=== PATIENT | female | born 1965 | race Caucasian/White ===

== ENCOUNTER 2020-05-22 07:45 | Emergency (ER) | payer OTHER ==
[~2020-05-22] VITALS: Ht 175.3 cm; Wt 90.7 kg
[~2020-05-22 07:45] MED LIST: CIPRO500 MG PO; ONDANSETRON HCL4 M2 PO; TORADOL 10 MG T10 MG PO
[2020-05-22 08:34] LABS: ABSOLUTE BASOPHILS 0.1 thou/uL (0.0-0.2); ABSOLUTE EOSINOPHILS 0.2 thou/uL (0.0-0.7); ABSOLUTE LYMPHOCYTES 2.4 thou/uL (0.8-5.3); ABSOLUTE MONOCYTES 2.1 thou/uL (0.0-1.2); ABSOLUTE NEUTROPHILS 12.1 thou/uL (1.6-8.1); BASOPHILS 0.4 %; HEMATOCRIT 41.2 % (37.0-47.0); HEMOGLOBIN 14.2 gm/dL (12.0-15.0); LYMPHOCYTES 14.5 %; MCH 28.4 pg (26.0-34.0); MCHC 34.4 g/dL (28.0-37.0); MCV 82.6 fL (80.0-100.0); MONOCYTES 12.4 %; MPV 9.6 fl. (7.2-11.1); NUCLEATED RBCS 0 /100WBC; PLATELET COUNT* 302 thou/uL (150-400); POLYS 71.7 %; RBC 4.99 mil/uL (4.20-5.00); RDW-CV 12.8 % (10.5-14.5); WBC 16.8 thou/uL (4.0-11.0)
[2020-05-22 08:42] LABS: CALCIUM 9.1 mg/dL (8.5-10.1); CREATININE 1.3 mg/dL (0.6-1.3); POTASSIUM 4.1 mmol/L (3.5-5.1)
[2020-05-22 08:47] LABS: TOTAL BILIRUBIN 0.5 mg/dL (<0.1-1.0); TOTAL PROTEIN 8.7 g/dL (6.4-8.2)
[2020-05-22 10:13] LABS: URINE BILIRUBIN NEGATIVE (Negative); URINE BLOOD 2+ (Negative); URINE CLARITY CLEAR; URINE COLOR YELLOW; URINE GLUCOSE-RANDOM NEGATIVE (Negative); URINE KETONES NEGATIVE (Negative); URINE LEUKOCYTES-REFLEX 2+ (Negative); URINE NITRITE-REFLEX NEGATIVE (Negative); URINE PROTEIN NEGATIVE (Negative); URINE SPECIFIC GRAVITY <= 1.005 (1.005-1.030); URINE UROBILINOGEN 0.2 E.U./dl (0.2-1.0)
[2020-05-22 10:20] LABS: SQUAMOUS >10 Many /LPF (0-3)
[2020-05-22 10:23] LABS: BACTERIA-REFLEX >30 Many /HPF (None Seen); CASTS None Seen /LPF (None Seen); CRYSTALS None Seen /LPF (None Seen); MUCUS 0-3 Light strn/LPF (None Seen); URINE RBC 3-10 Few /HPF (0-2)
[2020-05-22 11:45] VITALS: BP 119/38
== END 2020-05-22 11:45 | disposition designated cancer center or children's hospital (05) ==
LOC: M.ERS 07:45
PROVIDERS: Emergency Medicine Emergency Medical Services
DX: N20.0 Calculus of kidney (principal); N39.0 Urinary tract infection, site not specified; Z20.828 Contact with and (suspected) exposure to other viral communicable diseases; Z87.442 Personal history of urinary calculi; Z90.710 Acquired absence of both cervix and uterus; Z91.048 Other nonmedicinal substance allergy status; Z88.6 Allergy status to analgesic agent; Z88.8 Allergy status to other drugs, medicaments and biological substances

== ENCOUNTER 2020-10-22 22:02 | Emergency (ER) | payer OTHER ==
[~2020-10-22] VITALS: Ht 175.3 cm; Wt 95.3 kg
[2020-10-22] MEDS ORDERED: FLONASE 0.05%50 MCG NASAL (22:17)
[2020-10-22] MEDS ORDERED: ZYRTEC10 M5 PO (22:17)
[2020-10-22] MEDS ORDERED: SUPER THERAVIT1 EACH PO (22:17)
[2020-10-22 22:37] LABS: URINE BILIRUBIN NEGATIVE (Negative); URINE BLOOD 1+ (Negative); URINE CLARITY SL CLOUDY; URINE COLOR YELLOW; URINE GLUCOSE-RANDOM NEGATIVE (Negative); URINE KETONES NEGATIVE (Negative); URINE LEUKOCYTES-REFLEX 1+ (Negative); URINE NITRITE-REFLEX NEGATIVE (Negative); URINE PROTEIN 1+ (Negative); URINE SPECIFIC GRAVITY 1.025 (1.005-1.030); URINE UROBILINOGEN 0.2 E.U./dl (0.2-1.0)
[2020-10-22 22:46] LABS: MUCUS None Seen strn/LPF (None Seen); SQUAMOUS 0-3 Few /LPF (0-3); URINE WBC-REFLEX >25 Many /HPF (0-5)
[2020-10-22 22:47] LABS: BACTERIA-REFLEX >30 Many /HPF (None Seen)
[2020-10-22 22:48] LABS: WBC CLUMPS Few (None Seen)
[2020-10-22 22:49] LABS: CASTS None Seen /LPF (None Seen); CRYSTALS None Seen /LPF (None Seen); URINE RBC 0-2 Rare /HPF (0-2)
[2020-10-22 22:54] LABS: ABSOLUTE BASOPHILS 0.1 thou/uL (0.0-0.2); ABSOLUTE EOSINOPHILS 0.3 thou/uL (0.0-0.7); ABSOLUTE LYMPHOCYTES 3.6 thou/uL (0.8-5.3); ABSOLUTE NEUTROPHILS 11.6 thou/uL (1.6-8.1); BASOPHILS 0.4 %; EOSINOPHILS 1.6 %; WBC 16.9 thou/uL (4.0-11.0)
[2020-10-22 22:55] LABS: ABSOLUTE MONOCYTES 1.4 thou/uL (0.0-1.2); HEMATOCRIT 42.5 % (37.0-47.0); HEMOGLOBIN 14.2 gm/dL (12.0-15.0); LYMPHOCYTES 21.5 %; MCH 27.4 pg (26.0-34.0); MCHC 33.3 g/dL (28.0-37.0); MCV 82.3 fL (80.0-100.0); MONOCYTES 8.1 %; MPV 10.2 fl. (7.2-11.1); NUCLEATED RBCS 0 /100WBC; PLATELET COUNT* 245 thou/uL (150-400); POLYS 68.4 %; RBC 5.16 mil/uL (4.20-5.00); RDW-CV 12.9 % (10.5-14.5)
[2020-10-22 23:02] LABS: CALCIUM 9.7 mg/dL (8.5-10.1); POTASSIUM 3.8 mmol/L (3.5-5.1)
[2020-10-23] MEDS ORDERED: DOXYCYCLINE 10100 MG PO (00:48)
[2020-10-23] MEDS ORDERED: ZOFRAN ODT4 MG PO (00:49)
[2020-10-23] MEDS ORDERED: HYDROCODON-ACE1 EAC8 PO (00:49)
[2020-10-23 00:56] VITALS: BP 149/77
== END 2020-10-23 00:56 | disposition home or self-care (01) ==
LOC: M.ERS 22:02
PROVIDERS: Emergency Medicine
DX: N12 Tubulo-interstitial nephritis, not specified as acute or chronic (principal); Z87.442 Personal history of urinary calculi; Z90.710 Acquired absence of both cervix and uterus; Z88.5 Allergy status to narcotic agent; Z88.8 Allergy status to other drugs, medicaments and biological substances